=== PATIENT | male | born 1995 | race Caucasian/White ===

== ENCOUNTER 2018-07-12 13:42 | Inpatient (IN) | payer MEDICAID ==
[2018-07-12 13:53] VITALS: O2SAT 98
--- NOTE | 2018-07-12 14:03 | C.PDOC ---
History Of Present Illness 23 y/o M c PMHx depression, anxiety, heroin abuse p/w "not feeling well." Thoughts to hurt self, feeling depressed. Also used heroin yesterday. Seen at [facility] and medically cleared there, transferred here for admission. Patient denies fever, chest pain, or dyspnea. Time Seen by Provider: 07/12/18 13:44 Chief Complaint (Nursing): Psychiatric Evaluation Past Medical History Vital Signs: Last Vital Signs Temp 98.2 F 07/12/18 13:44 Pulse 82 07/12/18 13:44 Resp 18 07/12/18 13:44 BP 130/80 07/12/18 13:44 Pulse Ox 98 07/12/18 13:44 - Medical History PMH: Depression Family History: States: No Known Family Hx - Social History Hx Alcohol Use: No Hx Substance Use: Yes - Immunization History Hx Tetanus Toxoid Vaccination: No Hx Influenza Vaccination: No Hx Pneumococcal Vaccination: No Review Of Systems Except As Marked, All Systems Reviewed And Found Negative. Constitutional: Negative for: Fever Cardiovascular: Negative for: Chest Pain Physical Exam - Physical Exam Appears: No Acute Distress Skin: Normal Color Head: Normacephalic Eye(s): bilateral: PERRL Oral Mucosa: Moist Neck: Supple Cardiovascular: Rhythm Regular Respiratory: Normal Breath Sounds Gastrointestinal/Abdominal: Soft, No Tenderness Back: No CVA Tenderness Extremity: No Tenderness, No Swelling Pulses: Left Radial: Normal, Right Radial: Normal Neurological/Psych: Normal Speech ED Course And Treatment O2 Sat by Pulse Oximetry: 98 Disposition - Disposition Disposition: HOSPITALIZED Disposition Time: 14:05 Condition: FAIR - Clinical Impression Clinical Impression: Major depression, Opioid use disorder, severe, dependence
--- NOTE | 2018-07-12 14:39 | PCM.BM ---
<Romel Brady - Last Filed: 07/12/18 14:37> Treatment Plan Problems - Problems identified on initial assessmt Opiate abuse Date Initiated: 07/12/18 Time Initiated: 14:38 Assessment reference: NA Status: Active Depression Date Initiated: 07/12/18 Time Initiated: 14:38 Assessment reference: NA Status: Active Treatment assets and liabiliti Patient Assests: adapts well, educated, self-reliant, ADL independent, physically healthy, good support system, negotiates basic needs, financial stabiity, cognitively intact Patient Liabilities: substance abuse (Opiates) - Milieu Protocol Maintain good personal hygiene: daily Encourage regular showers, daily Remind patient to perform daily oral care, every shift Assist patient to perform ADL's Conduct patient checks and document Observation sheet: Q15 minutes (For safety) Maintain personal safety: every shift Educate patient to report safety concerns to staff, every shift Monitor environment for contraband/sharps Medication safety: Monitor for expected outcome, potential side effects: every shift, Assess barriers to learning: every shift, Assess readiness for medication education: every shift <Kimi Tellez - Last Filed: 07/13/18 11:45> - Diagnosis (1) Bipolar 1 disorder Status: Acute Interventions: 07/13/18 11:45 * Assess/adjust medications daily and /or as needed * See patient on an individual basis 7x/week to assess level of manic behaviors and stability * Discuss risks, benefits, side effects and alternatives of medications * (2) Opioid use disorder, severe, dependence Status: Acute Interventions: 07/13/18 11:45 * Assess 7x/week regarding severity of withdrawal * Educate regarding risks, benefits, side effects and alternatives of medications * Use Motivational Interviewing for abstinence * Use CBT for relapse prevention * Medication management for withdrawal symptoms * Encourage medication assisted treatment * <Lizbeth Dumas - Last Filed: 07/13/18 13:47> Family Contact Family involvement: Famliy/SO not involved - Goals for Treatment Patient goals for treatment: "I want to leave." Discharge/Continuing Care - Education Needs Education Needs: Patient Medication, Patient Coping Skills, Patient Placement options, Patient Community resources - Discharge Discharge Criteria: Tolerates medication w/o severe side effects, No longer exhibiting s/s of withdrawal, Reduction of target symptoms Discharge to:: Senior Living - Treatment Team Participation Discussed with Family/SO: No Was Patient/Family/SO present at Treatment Team Meeting: Yes
[2018-07-13 11:03] VITALS: BP 116/76; PULSE 55; RESP 20; TEMP 98.1
[2018-07-13] MEDS ORDERED: Aluminum Hydroxide/Magnesium Hydroxide Susp (30 mL) PO PRN (11:22)
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
--- NOTE | 2018-07-14 08:38 | PCM.PYCHDC ---
Mental Status Examination - Mental Status Examination Orientation: Person, Place, Situation, Time Memory: Intact Mood: Anxious Affect: Constricted Speech: Pressured Attention: Poor Concentration: Poor Association: WNL Fund of Knowledge: WNL Formal Thought Process: Loosening of associations Suicidal Ideation: No Current Homicidal Ideation?: No Discharge Summary - Discharge Note Reason for Hospitalization: Heroin detox, feeling depressed Consultations:: List each consultation separately and include: 1. Reason for request. 2. Findings. 3. Follow-up Summary of Hospital Course include:: 1. Description of specific treatment plan utilized for patients during their course of treatmen. 2. Summarize the time- course for resolution of acute symptoms and/or regressed behaviors. 3. Describe issues identified and worked on during hospitalization. 4. Describe medication utilized. 5. Describe medical problems identified and treated. 6. Reassessment of suicide risk Summary of Hospital Course: The pt was admitted and started on treatment with psychotherapy, support, psychoeducation and medications. All the risks and benefits of medications are discussed and the patient understood and agreed. After care discussed with the patient. He wanted to go to a methadone program via help from [employer] He put in a 48-hr notice and became agitated and verbally abusive towards staff. Security called and he is discharged per his request. He was NOT suicidal and in fact he was future-oriented and contracted for safety. Pt is to follow-up with [facility] in [place]. He left AMA. Risks of leaving AMA, incl. relapse, OD and even are discusse d and he understood but still left. - Final Diagnosis (DSM 5) Condition upon Discharge: FAIR DSM 5: Bipolar 1 disorder, mixed episode Opioid use d/o severe Opioid withdrawal PTSD by hx Personality d/o - unspecified ADHD Disposition: AGAINST MEDICAL ADVICE Follow-up Treatment Plan: Use relapse prevention skills Return to ER or call 911 if suicidal, homicidal or symptoms relapse. Stay away from stress, alcohol and drugs. See primary doctor regularly and get labs. - Smoking Cessation Smoking Cessation Medication prescribed: No - Antipsychotic Medications Pt discharged on 2 or more routine antipsychotic medications: No
[2018-07-14] MEDS ORDERED: Pneumococcal 23-Valent Vaccine IM ONE (10:00)
== END 2018-07-13 15:15 | disposition left against medical advice (07) | DRG 430 ==
LOC: C.ER 13:42 → C.5E 14:04
PROVIDERS: ADMIT Psychiatry & Neurology Psychiatry; ATTEND Psychiatry & Neurology Psychiatry
PROC: GZHZZZZ Group Psychotherapy (ICD-10-PCS; principal; 2018-07-12)
PROC: GZ56ZZZ Individual Psychotherapy, Supportive (ICD-10-PCS; 2018-07-12)
PROC: HZ52ZZZ Individual Psychotherapy for Substance Abuse Treatment, Cognitive-Behavioral (ICD-10-PCS; 2018-07-12)
PROC: HZ59ZZZ Individual Psychotherapy for Substance Abuse Treatment, Supportive (ICD-10-PCS; 2018-07-12)
PROC: HZ56ZZZ Individual Psychotherapy for Substance Abuse Treatment, Psychoeducation (ICD-10-PCS; 2018-07-12)
PROC: HZ52ZZZ Individual Psychotherapy for Substance Abuse Treatment, Cognitive-Behavioral (ICD-10-PCS; 2018-07-12)
DX: F33.2 Major depressive disorder, recurrent severe without psychotic features (principal); F11.20 Opioid dependence, uncomplicated; F17.210 Nicotine dependence, cigarettes, uncomplicated; F41.0 Panic disorder [episodic paroxysmal anxiety]; F43.10 Post-traumatic stress disorder, unspecified; F41.9 Anxiety disorder, unspecified